=== PATIENT | male | born 1975 | race Caucasian/White ===

== ENCOUNTER 2017-08-08 17:20 | Inpatient (IN) | payer OTHER, MEDICAID ==
[2017-08-08 17:20] VITALS: BMI 55.5
--- NOTE | 2017-08-08 18:36 | C.PDOC ---
History Of Present Illness 42 y/o male, with PMHx of schizophrenia, presents to the ED with mother for psychiatric evaluation. As per mother, patient has been exhibiting disorganized behavior for the past 2 months. Mother states patient has been getting up in the middle of the night, eating and rummaging through things. Patient has sleep apnea and has been on CPAP for the past 15 years. Patient was in respiratory arrest 1 year ago, for which he was treated at [facility] and placed on ventilator. Pathology was unclear at the time. Patient denies suicidal /homicidal ideation at this time. Time Seen by Provider: 08/08/17 17:46 Chief Complaint (Nursing): Medical Clearance History Per: Patient, Family History/Exam Limitations: no limitations Onset/Duration Of Symptoms: Days Current Symptoms Are (Timing): Still Present Additional History Per: Patient, Family Past Medical History Reviewed: Historical Data, Nursing Documentation, Vital Signs Vital Signs: Last Vital Signs Temp 98.9 F 08/08/17 20:37 Pulse 78 08/08/17 20:37 Resp 18 08/08/17 20:37 BP 124/82 08/08/17 20:37 Pulse Ox 98 08/08/17 20:37 - Medical History PMH: Anxiety, Bipolar Disorder, Depression, HTN, Hypercholesterolemia, Post Traumatic Stress Disorder, Schizophrenia, Sleep Apnea (Uses CPap @ night) Denies: Diabetes, Hepatitis, HIV, Chronic Kidney Disease, Seizures, Sexually Transmitted Disease Surgical History: No Surg Hx - [facility] Procedures CONTINUOUS INVASIVE MECHANICAL VENTILATION <96 CONSEC HRS (08/01/15) INJECT/INFUSE NEC (11/21/13) INSERT ENDOTRACHEAL TUBE (08/01/15) Family History: States: Unknown Family Hx - Social History Hx Tobacco Use: No Hx Alcohol Use: No Hx Substance Use: No - Immunization History Hx Tetanus Toxoid Vaccination: Yes Hx Influenza Vaccination: Yes Hx Pneumococcal Vaccination: Yes Review Of Systems Psych: Positive for: Other (+schizophrenia, acting disorganized ). Negative for : Suicidal ideation Physical Exam - Physical Exam Appears: Non-toxic, No Acute Distress, Other (disorganized, not answering questions appropriately, engaging in repetitive hand motions, internally occupied, emotionally distressed, obese ) Skin: Normal Color, Warm, Dry Head: Atraumatic, Normacephalic Eye(s): bilateral: Normal Inspection Oral Mucosa: Moist Neck: Supple Chest: Symmetrical, No Deformity, No Tenderness Cardiovascular: Rhythm Regular, No Murmur Respiratory: Normal Breath Sounds, No Rales, No Rhonchi, No Wheezing Gastrointestinal/Abdominal: Soft, No Tenderness, No Guarding, No Rebound Extremity: Normal ROM Neurological/Psych: Normal Speech, Normal Cognition Gait: Steady ED Course And Treatment - Laboratory Results Result Diagrams: 08/08/17 17:57 08/08/17 18:54 O2 Sat by Pulse Oximetry: 96 (on RA) Pulse Ox Interpretation: Normal Medical Decision Making Medical Decision Making: Impression: 42 y/o male with disorganized behavior Plan: * labs * CXR * EKG * reassess and disposition Progress: labs, EKG, CXR ordered and reviewed. Patient received Ativan PO. Patient needs psychiatry admission for medication management but is unable to go to psych floor due to CPAP for ASO. Case discussed with Dr. Borrego, states OK to admit. Disposition Discussed With : Devon Borrego Counseled Patient/Family Regarding: Studies Performed, Diagnosis - Disposition Disposition: HOSPITALIZED Disposition Time: 18:55 Condition: GUARDED - Clinical Impression Clinical Impression: Schizophrenia, Anxiety, Morbid obesity - Scribe Statement The provider has reviewed the documentation as recorded by the Scribe (Casie Levin) Provider Attestation: All medical record entries made by the Scribe were at my direction and personally dictated by me. I have reviewed the chart and agree that the record accurately reflects my personal performance of the history, physical exam, medical decision making, and the department course for this patient. I have also personally directed, reviewed, and agree with the discharge instructions and disposition. Decision To Admit - Pt Status Changed To: Hospital Disposition Of: Inpatient - Admit Certification Admit to Inpatient:: After my assessment, the patient will require hospitalization for at least two midnights. This is because of the severity of symptoms shown, intensity of services needed, and/or the medical risk in this patient being treated as an outpatient. - InPatient: Physician Admission Certification: I certify that this patient requires 2 or more midnights of care for the following reason:: schizophrenia, - . Bed Request Type: Regular Patient Diagnosis: Schizophrenia, Anxiety, Morbid obesity
[2017-08-08 18:55] LABS: BASO # 0.1 K/uL (0.0-0.2); BASO % 0.6 % (0.0-2.0); EOS # 0.1 K/uL (0.0-0.7); EOS % 1.1 % (0.0-4.0); LYMPH # 1.6 K/uL (1.0-4.3); LYMPH % 17.7 % (20.0-40.0); MEAN CORPUSCULAR HEMOGLOBIN 25.2 pg (27.0-31.0); MEAN PLATELET VOLUME 7.1 fL (7.2-11.7); MONO % 11.3 % (0.0-10.0); RED CELL DISTRIBUTION WIDTH 13.8 % (11.5-14.5)
[2017-08-08 19:20] LABS: CHLORIDE 90 mmol/L (98-107)
[2017-08-08 19:21] LABS: POTASSIUM 3.6 mmol/L (3.6-5.2); SODIUM 128 mmol/L (132-148)
[2017-08-08 19:24] LABS: ALB/GLOB RATIO 1.5 (1.0-2.1); ALKALINE PHOSPHATASE 54 U/L (38-126); ALT/SGPT 28 U/L (21-72); AST/SGOT 21 U/L (17-59); BILIRUBIN,TOTAL 0.5 mg/dL (0.2-1.3); BLOOD UREA NITROGEN 14 mg/dL (9-20); CALCIUM 8.9 mg/dl (8.6-10.4); CARBON DIOXIDE 27 mmol/L (22-30); GFR AFRICAN-AMERICAN > 60; GLUCOSE,RANDOM 88 mg/dL (75-110); TOTAL PROTEIN 6.5 g/dL (6.3-8.3)
[2017-08-08 19:25] LABS: ALCOHOL SERUM < 10 mg/dl (0-10)
--- NOTE | 2017-08-08 20:00 | CP.PCM.HP ---
History of Present Illness - History of Present Illness History of Present Illness: 42 y/o male, with PMHx of schizophrenia, presents to the ED with mother for psychiatric evaluation. As per mother, patient has been exhibiting disorganized behavior for the past 2 months. Mother states patient has been getting up in the middle of the night, eating and rummaging through things. Patient has sleep apnea and has been on CPAP for the past 15 years. Patient was in respiratory arrest 1 year ago, for which he was treated at [facility] and placed on ventilator. Pathology was unclear at the time. Patient denies suicidal /homicidal ideation at this time. Pt. was also intubated in 2014 Present on Admission - Present on Admission Any Indicators Present on Admission: No Review of Systems - Review of Systems All systems: reviewed and no additional remarkable complaints except (restless ness) Past Patient History - Infectious Disease Hx of Infectious Diseases: None - Past Medical History & Family History Past Medical History?: Yes - Past Social History Smoking Status: Never Smoked - CARDIAC Hx Hypercholesterolemia: Yes Hx Hypertension: Yes - PULMONARY Hx Sleep Apnea: Yes (Uses CPap @ night) - NEUROLOGICAL Hx Seizures: No - HEENT Hx HEENT Problems: No - RENAL Hx Chronic Kidney Disease: No - ENDOCRINE/METABOLIC Hx Diabetes Mellitus Type 2: Yes (newly diagnosed) - HEMATOLOGICAL/ONCOLOGICAL Hx Human Immunodeficiency Virus (HIV): No - INTEGUMENTARY Hx Dermatological Problems: No - MUSCULOSKELETAL/RHEUMATOLOGICAL Hx Musculoskeletal Disorders: No Hx Falls: No - GASTROINTESTINAL Hx Gastrointestinal Disorders: No - GENITOURINARY/GYNECOLOGICAL Hx Sexually Transmitted Disorders: No - PSYCHIATRIC Hx Anxiety: Yes Hx Bipolar Disorder: Yes Hx Depression: Yes Hx Post Traumatic Stress Disorder: Yes Hx Schizophrenia: Yes Hx Substance Use: No - SURGICAL HISTORY Hx Surgeries: No - ANESTHESIA Hx Anesthesia: No Hx Anesthesia Reactions: No Hx Malignant Hyperthermia: No Meds Allergies/Adverse Reactions: Allergies Allergy/AdvReac Type Severity Reaction Status Date / Time No Known Allergies Allergy Verified 08/08/17 17:34 Physical Exam - Eye Exam Eye Exam: EOMI - ENT Exam ENT Exam: Mucous Membranes Dry - Neck Exam Neck exam: Positive for: Full Rom. Negative for: Lymphadenopathy - Cardiovascular Exam Cardiovascular Exam: +S1, +S2, +S4 - GI/Abdominal Exam GI & Abdominal Exam: Soft. absent: Tenderness - Extremities Exam Extremities exam: Positive for: full ROM, normal capillary refill, pedal pulses present. Negative for: calf tenderness - Back Exam Back exam: FULL ROM. absent: CVA tenderness (L), CVA tenderness (R) - Neurological Exam Neurological exam: Alert, CN II-XII Intact, Oriented x3, Reflexes Normal Results - Vital Signs Recent Vital Signs: Last Vital Signs Temp 98.5 F 08/08/17 17:32 Pulse 87 08/08/17 17:32 Resp 20 08/08/17 17:32 BP 139/79 08/08/17 17:32 Pulse Ox 96 08/08/17 19:16 - Labs Result Diagrams: 08/08/17 17:57 08/08/17 18:54 Assessment & Plan (1) Schizophrenia Status: Acute Comment: PSYCH EVAL, ADJUSTMENT OF MEDS (2) Hypercapnia Status: Acute (3) Obstructive sleep apnea Status: Acute Comment: WILL CONSULT RESP. AND ODER CPAP SETTINGS
[2017-08-08 20:22] LABS: URINE BACTERIA RARE (<OCC); URINE BILIRUBIN NEGATIVE (NEGATIVE); URINE BLOOD NEGATIVE (NEGATIVE); URINE COLOR Straw (YELLOW); URINE GLUCOSE (UA) NORMAL (Normal); URINE KETONE NEGATIVE (NEGATIVE); URINE LEUKOCYTE ESTERASE NEG Leu/uL (Negative); URINE PROTEIN NEGATIVE (NEGATIVE); URINE UROBILINOGEN NORMAL mg/dL (0.2-1.0); WBC URINE < 1 /hpf (0-5)
[2017-08-09] MEDS ORDERED: Pneumococcal 23-Valent Vaccine IM ONE (00:30)
--- NOTE | 2017-08-09 08:13 | RAD ---
PROCEDURE: CHEST RADIOGRAPH, 1 VIEW HISTORY: Detox/Psy COMPARISON: Portable chest 08/04/2015. FINDINGS: LUNGS: History volume is limited. Crowding of the bronchovascular markings is favored over potential right infrahilar infiltrate with no left infiltrate identified. PLEURA: No pneumothorax or pleural fluid seen. CARDIOVASCULAR: Normal. OSSEOUS STRUCTURES: No significant abnormalities. VISUALIZED UPPER ABDOMEN: Normal. OTHER FINDINGS: None. IMPRESSION: Crowding of the bronchovascular markings is favored over infiltrate or atelectasis at the right infrahilar space given diminished inspiratory effort. Clinically correlate further. Remainder of the examination appears unremarkable.
[2017-08-09] MEDS: Vitamin B Complex/Vitamin C Tab PO SCH (09:53)
[2017-08-09 12:08] LABS: CHLORIDE 95 mmol/L (98-107); POTASSIUM 4.1 mmol/L (3.6-5.2); SODIUM 133 mmol/L (132-148)
[2017-08-09 12:10] LABS: GFR AFRICAN-AMERICAN > 60
[2017-08-09 12:11] LABS: BLOOD UREA NITROGEN 17 mg/dL (9-20); CALCIUM 8.9 mg/dl (8.6-10.4); CARBON DIOXIDE 29 mmol/L (22-30); GLUCOSE,RANDOM 89 mg/dL (75-110)
--- NOTE | 2017-08-09 14:00 | CP.PCM.PN ---
Subjective - Date & Time of Evaluation Date of Evaluation: 08/09/17 Time of Evaluation: 13:59 - Subjective Subjective: RESTLESS TAKES OFF CPAP WAS D/C FROM ON 08/08 AFTER RESP FAILURE PSYCH FRANK ALSO HAS H/O DM Objective - Vital Signs/Intake and Output Vital Signs (last 24 hours): Temp Pulse Resp BP Pulse Ox 98.5 F 70 20 117/69 96 08/09/17 08:00 08/09/17 08:00 08/09/17 08:00 08/09/17 08:00 08/09/17 08:00 Intake and Output: 08/09/17 08/09/17 11:59 23:59 Intake Total 800 Balance 800 - Medications Medications: Current Medications Benztropine Mesylate (Cogentin) 2 mg PO Q6 PRN PRN Reason: Extra Pyramidal Symptoms Diphenhydramine HCl (Benadryl) 50 mg PO Q6 PRN PRN Reason: Extra Pyramidal Symptoms Haloperidol (Haldol) 5 mg PO Q8 PRN PRN Reason: Moderate Agitation Haloperidol Lactate (Haldol) 5 mg IM Q8 PRN PRN Reason: Moderate Agitation Last Admin: 08/09/17 02:17 Dose: 5 mg Hydrochlorothiazide (Hydrodiuril) 25 mg PO DAILY [facility] Last Admin: 08/09/17 09:53 Dose: 25 mg Hydroxyzine HCl (Atarax) 25 mg PO Q6 PRN PRN Reason: Agitation Insulin Human Regular (Novolin R) 2 unit SC [facility] PRN Reason: Protocol Lisinopril (Zestril) 20 mg PO DAILY [facility] Last Admin: 08/09/17 09:53 Dose: 20 mg Metformin HCl (Glucophage) 500 mg PO BID [facility] Last Admin: 08/09/17 09:52 Dose: 500 mg Pneumococcal Polyvalent Vaccine (Pneumovax 23 Vaccine) 0.5 ml IM .ONCE ONE Stop: 08/11/17 10:01 Rosuvastatin Calcium (Crestor) 10 mg PO [facility] Last Admin: 08/08/17 22:47 Dose: 10 mg Sertraline HCl (Zoloft) 100 mg PO DAILY [facility] Last Admin: 08/09/17 09:54 Dose: 100 mg Trazodone HCl (Desyrel) 50 mg PO [facility] Last Admin: 08/08/17 23:20 Dose: 50 mg Vitamin B Complex/Vitamin C (Berocca) 1 tab PO DAILY [facility] Last Admin: 08/09/17 09:53 Dose: 1 tab - Labs Labs: 08/09/17 11:41 Assessment and Plan (1) Schizophrenia Status: Acute (2) Hypercapnia Status: Acute (3) Obstructive sleep apnea Status: Acute
--- NOTE | 2017-08-09 15:23 | PCM.PSYCH ---
Initial Psychiatric Evaluation - Initial Psychiatric Evaluation Type of Admission: Voluntary Legal Status: Capacity Chief Complaint (in patient's own words): Psych consult called for hx of schizophrenia, recent behavior change, possible need for medication adjustment Pt c/o anxiety History of Present Illness and Precipitating Events: Patient is a 42 year old male, single, unemployed, who lives with his mother. Patient is mostly Chadian-speaking and speech is currently disorganized. History obtained via fire watcher from patient and patient's mother. Per patient's mom, he has a history of schizophrenia, depression, and panic attacks. She states that he has recently become hyperactive, anxious, agitated, and started sweating and scratching his face. She brought him to the ED to be evaluated because she did not feel that his psychiatrist would be able to adequately help him. He currently takes Zoloft 100mg once a day and Risperdal 1mg twice a day, in addition to medications for his medical conditions. Patient's mom denies a history of developmental delay and states that he was a normal child until he developed schizophrenia. He completed school until 10th grade. However, the pt seems slightly intellectually disabled. At present, patient states that he is hungry and is eating a sandwich. He denies auditory or visual hallucinations, suicidal or homicidal ideation, but he is very disorganized and cannot take care of self or stay outside. He repeats some words over and over again, and at time says nonsensical words. History is limited due to patient's current mental state. Medical history: Obstructive sleep apnea (on CPAP at night) DM hypercholesterolemia HTN Medications: Zoloft 100mg once a day Risperdal 1mg twice a day other medicines noted below Allergies: denies Social history: Lives with mother single unemployed ETOH: denies Drugs: denies Tobacco: denies Not on probation/parole Current Medications: Active Medications Generic Name Dose Route Start Last Admin Trade Name Freq PRN Reason Stop Dose Admin Benztropine Mesylate 2 mg 08/08/17 22:38 Cogentin PO Q6 PRN Extra Pyramidal Symptoms Clonazepam 1 mg 08/09/17 18:00 Klonopin PO BID [facility]ATY Diphenhydramine HCl 50 mg 08/08/17 22:38 Benadryl PO Q6 PRN Extra Pyramidal Symptoms Haloperidol 5 mg 08/08/17 22:38 Haldol PO Q8 PRN Moderate Agitation Haloperidol Lactate 5 mg 08/08/17 22:38 08/09/17 02:17 Haldol IM 5 mg Q8 PRN Administration Moderate Agitation Hydrochlorothiazide 25 mg 08/09/17 10:00 08/09/17 09:53 Hydrodiuril PO 25 mg DAILY [facility]AT[facility] Administration Hydroxyzine HCl 25 mg 08/08/17 22:40 Atarax PO Q6 PRN Agitation Insulin Human Regular 0 unit 08/09/17 16:30 Novolin R SC [facility] Protocol Lisinopril 20 mg 08/09/17 10:00 08/09/17 09:53 Zestril PO 20 mg DAILY TATY Administration Metformin HCl 500 mg 08/09/17 10:00 08/09/17 09:52 Glucophage PO 500 mg BID [facility]ATY Administration Pneumococcal Polyvalent Vaccine 0.5 ml 08/11/17 10:00 Pneumovax 23 Vaccine IM 08/11/17 10:01 .ONCE ONE Propranolol HCl 10 mg 08/09/17 18:00 Inderal PO TID TATY Risperidone 1 mg 08/09/17 18:00 Risperdal Tab PO BID TATY Rosuvastatin Calcium 10 mg 08/08/17 22:00 08/08/17 22:47 Crestor PO 10 mg HS TATY Administration Sertraline HCl 100 mg 08/09/17 10:00 08/09/17 09:54 Zoloft PO 100 mg DAILY [facility] Administration Trazodone HCl 100 mg 08/09/17 22:00 Desyrel PO HS TATY Vitamin B Complex/Vitamin C 1 tab 08/09/17 10:00 08/09/17 09:53 Berocca PO 1 tab DAILY [facility]AT[facility] Administration Past Psychiatric History - Past Psychiatric History Previous Treatment History: Inpatient Pertinent Medical Hx (Current Medical&Sleep Prob, Allergies): Allergies Allergy/AdvReac Type Severity Reaction Status Date / Time No Known Allergies Allergy Verified 08/08/17 17:34 Sertraline [Zoloft] 100 mg PO DAILY 08/01/15 Atorvastatin 20 mg PO DAILY 02/13/16 MetFORMIN 500 mg PO BID 02/13/16 Multivit,Iron,Min 5/Folic Acid [Strovite Forte Caplet] 1 tab PO DAILY 02/13/16 Lasix 40 mg PO DAILY 08/08/17 Lisinopril/Hydrochlorothiazide [Lisinopril-Hctz 20-25 mg Tab] 1 tab PO DAILY Risperidone [Risperdal] 1 tab BID 08/09/17 Review of Systems - Neurological Neurological: UNREMARKABLE - Psychiatric Psychiatric: Anxiety, Behavioral Changes, Depression, Irritability, Panic Attacks, Paranoia. absent: Auditory Hallucinations, Homicidal Ideation, Suicidal Ideation Mental Status Examination - Personal Presentation Personal Presentation: Looks stated age, Obese - Affect Affect: Constricted - Motor Activity Motor Activity: Psychomotor Agitation - Reliability in Providing Information Reliability in Providing Information: Poor, due to alteration in thoughts, Poor , due to altered mood, Poor, due to cognitve impairment - Speech Speech: Disorganized, Incoherent - Mood Mood: Anxious - Formal Thought Process Formal Thought Process: Paranoia, Loosening of associations, Flight of ideas, Echolalia, Word Salad - Cognitive Functions Orientation: Person Sensorium: Alert Attention/Concentration: Easily distracted Estimate of Intelligence: Below average Judgement: Imparied, as evidence by: Lack of insight into illness Memory: Recent impaired, as evidence by: Inability to recall events of the day, Remote impaired as evidenced by: Inability to recall sig life events - Risk Risk: Diminished functioning - Strength & Assets Inventory Strength & Assets Inventory: Family support - Limitations Limitations: Other DSM 5 DX - DSM 5 DSM 5 Diagnosis: Schizophrenia, acute exacerbation r/o intellectual disability Panic disorder - Recommended/Plan of Treatment Treatment Recommendations and Plan of Treatment: Continue Zoloft 100mg PO daily but will decrease the dose due to risk of switch and interaction with zoloft, akathisia. Continue Risperdal 1mg PO BID (plan to increase tomorrow) Initiate Cogentin 2mg PO Q6 PRN EPS Initiate Inderal 10mg PO TID, Klonopin 1mg PO BID for likely akathisia and obvious anxiety Initiate Haldol PRN agitation Initiate Atarax PRN agitation Continue medications Support and psychoeducation daily Attend groups and activities daily After care planning by MARILYN 34 minutes Projected ELOS: 6-7 days Prognosis: good, only with treatment Discharge Plan and Discharge Criteria: no symptoms of severe depression or severe psyhotic features
--- NOTE | 2017-08-09 16:25 | PCM.BM ---
<Gloria Kinney - Last Filed: 08/09/17 16:22> Treatment Plan Problems - Problems identified on initial assessmt Depression Date Initiated: 08/09/17 Time Initiated: 15:00 Assessment reference: NA Status: Active Altered thought process Date Initiated: 08/09/17 Time Initiated: 15:00 Assessment reference: NA Status: Active Treatment assets and liabiliti Patient Assests: ADL independent, good support system, negotiates basic needs Patient Liabilities: live alone (Lives with mother), medical problems ( Respiratory problem on Cpap) - Milieu Protocol Maintain good personal hygiene: daily Encourage regular showers, daily Remind patient to perform daily oral care, other Assist patient to perform ADL's (Self) Conduct patient checks and document Observation sheet: Q15 minutes (Safety) Maintain personal safety: every shift Educate patient to report safety concerns to staff, every shift Monitor environment for contraband/sharps Medication safety: Monitor for expected outcome, potential side effects: every shift, Assess barriers to learning: every shift, Assess readiness for medication education: every shift Milieu Narrative: Continue Zoloft 100mg PO daily Continue Risperdal 1mg PO BID (plan to increase tomorrow) Initiate Cogentin 2mg PO Q6 PRN EPS Initiate Inderal 10mg PO TID, Klonopin 1mg PO BID for akathisia Initiate Haldol PRN agitation Initiate Atarax PRN agitation Continue medications Support and psychoeducation daily Attend groups and activities daily After care planning by SW 34 minutes Discharge/Continuing Care - Treatment Team Participation Patient/Family/SO Statement: Continue Zoloft 100mg PO daily Continue Risperdal 1mg PO BID (plan to increase tomorrow) Initiate Cogentin 2mg PO Q6 PRN EPS Initiate Inderal 10mg PO TID, Klonopin 1mg PO BID for akathisia Initiate Haldol PRN agitation Initiate Atarax PRN agitation Continue medications Support and psychoeducation daily Attend groups and activities daily After care planning by SW 34 minutes <Kelsi Pierre - Last Filed: 08/10/17 10:57> - Diagnosis (1) Schizophrenia Status: Acute Interventions: 08/10/17 10:58 * Assess/adjust medications daily and /or as needed * Discuss risks, benefits, sided effects and alternatives of medications * See patient on an individual basis 7x/week to assess level of delusional thoughts/ideation * (2) Anxiety Status: Acute Interventions: 08/10/17 10:58 * Assess/adjust medications daily and /or as needed * See patient on an individual basis 7x/week to assess symptoms of anxiety * Educate patient regarding benefits, side effects and risks of prescribed medications * <Jennifer Ram - Last Filed: 08/12/17 11:03> Family Contact Family involvement: Family/SO is involved Family contact: Patient declines to allow family contact at present - Goals for Treatment Patient goals for treatment: "I want to go home." Discharge/Continuing Care - Education Needs Education Needs: Patient Medication, Patient Coping Skills - Discharge Discharge Criteria: Free of Suicidal thoughts Discharge to:: Home, With Family - Treatment Team Participation Discussed with Family/SO: Yes Was Patient/Family/SO present at Treatment Team Meeting: Yes
[2017-08-09] MEDS: (Novolin R) Insulin Human Regular 100 units/ml vial SC SCH ×2 (16:51→21:56)
[2017-08-10] MEDS: (Novolin R) Insulin Human Regular 100 units/ml vial SC SCH ×4 (07:44→22:06)
[2017-08-10] MEDS: Vitamin B Complex/Vitamin C Tab PO SCH (09:19)
[2017-08-10 09:26] LABS: BASO % 0.6 % (0.0-2.0); EOS # 0.1 K/uL (0.0-0.7); EOS % 2.1 % (0.0-4.0); HEMATOCRIT 37.9 % (35.0-51.0); LYMPH % 16.2 % (20.0-40.0); MEAN CELL VOLUME 75.4 fL (80.0-94.0); MEAN CORPUSCULAR HEMOGLOBIN 25.6 pg (27.0-31.0); MEAN PLATELET VOLUME 7.5 fL (7.2-11.7); MONO # 0.6 K/uL (0.0-0.8); MONO % 8.7 % (0.0-10.0); WHITE BLOOD COUNT 6.4 K/uL (4.8-10.8)
[2017-08-10 09:40] LABS: CHLORIDE 96 mmol/L (98-107); POTASSIUM 4.5 mmol/L (3.6-5.2); SODIUM 133 mmol/L (132-148)
[2017-08-10 09:42] LABS: AST/SGOT 18 U/L (17-59); BILIRUBIN,TOTAL 0.6 mg/dL (0.2-1.3); CARBON DIOXIDE 27 mmol/L (22-30); GFR AFRICAN-AMERICAN > 60
[2017-08-10 09:43] LABS: ALB/GLOB RATIO 1.6 (1.0-2.1); ALKALINE PHOSPHATASE 50 U/L (38-126); ALT/SGPT 32 U/L (21-72); BLOOD UREA NITROGEN 14 mg/dL (9-20); CALCIUM 8.3 mg/dl (8.6-10.4); GLUCOSE,RANDOM 133 mg/dL (75-110); TOTAL PROTEIN 6.4 g/dL (6.3-8.3)
--- NOTE | 2017-08-10 11:12 | PCM.PYCHPN ---
Psychiatric Progress Note - Psychiatric Progress Note Patient seen today, length of contact: 15 min Patient Chief Complaint: thais Problems Identified/Issues Discussed: Patient seen and evaluated, chart reviewed and discussed with the nurse. Patient remained disorganized and internally preoccupied. Patient still appears paranoid and delusional. Patient remained depressed, isolated, confined and withdrawn. He is taking medication and denies any side effects. Supportive therapy and psychoeducation were given. Medication Change: No Medical Record Reviewed: Yes Mental Status Examination - Cognitive Function Orientation: Person Memory: Impaired Attention: Poor Concentration: Poor Association: Loose Fund of Knowledge: Poor - Mood Mood: Anxious - Affect Affect: Constricted - Speech Speech: Soft - Formal Thought Process Formal Thought Process: Delusions, Paranoia, Loosening of associations, Flight of ideas, Echolalia, Word Salad - Suicidal Ideation Suicidal Ideation: No - Homicidal Ideation Homicidal Ideation: No Goal/Treatment Plan - Goal/Treatment Plan Need for Continued Stay: Discharge may exacerbated symptoms, Severe functional impairment Progress Toward Problem(s) and Goals/Treatment Plan: Schizophrenia, acute exacerbation r/o intellectual disability Panic disorder Continue Zoloft 100mg PO daily but will decrease the dose due to risk of switch and interaction with zoloft, akathisia. Continue Risperdal 1mg PO BID (plan to increase tomorrow) Initiate Cogentin 2mg PO Q6 PRN EPS Initiate Inderal 10mg PO TID, Klonopin 1mg PO BID for likely akathisia and obvious anxiety Initiate Haldol PRN agitation Initiate Atarax PRN agitation Continue medications Support and psychoeducation daily Attend groups and activities daily After care planning by MARILYN - Smoking Cessation Smoking Cessation Initiated: No
--- NOTE | 2017-08-10 14:04 | CP.PCM.PN ---
Subjective - Date & Time of Evaluation Date of Evaluation: 08/10/17 Time of Evaluation: 14:03 - Subjective Subjective: PT. IN PSYCH UNIT UNDER TREATMENT CURRENTLY NOT ON BIPAP D/W NURSING TO INFORM IF PT IS SYMPTOMATIC , WILL TRANSFER BACK TO MEDICAL FLOOR Objective - Vital Signs/Intake and Output Vital Signs (last 24 hours): Temp Pulse Resp BP Pulse Ox 98.6 F 71 20 114/77 96 08/10/17 06:54 08/10/17 06:54 08/10/17 06:54 08/10/17 06:54 08/10/17 06:54 - Medications Medications: Current Medications Benztropine Mesylate (Cogentin) 2 mg PO Q6 PRN PRN Reason: Extra Pyramidal Symptoms Last Admin: 08/10/17 09:19 Dose: 2 mg Clonazepam (Klonopin) 1 mg PO BID [facility] Last Admin: 08/10/17 09:19 Dose: 1 mg Diphenhydramine HCl (Benadryl) 50 mg PO Q6 PRN PRN Reason: Extra Pyramidal Symptoms Haloperidol (Haldol) 5 mg PO Q8 PRN PRN Reason: Moderate Agitation Last Admin: 08/10/17 09:19 Dose: 5 mg Haloperidol Lactate (Haldol) 5 mg IM Q8 PRN PRN Reason: Moderate Agitation Last Admin: 08/09/17 02:17 Dose: 5 mg Hydrochlorothiazide (Hydrodiuril) 25 mg PO DAILY [facility] Last Admin: 08/10/17 09:19 Dose: 25 mg Hydroxyzine HCl (Atarax) 25 mg PO Q6 PRN PRN Reason: Agitation Insulin Human Regular (Novolin R) 0 unit SC [facility] PRN Reason: Protocol Last Admin: 08/10/17 11:52 Dose: Not Given Lisinopril (Zestril) 20 mg PO DAILY [facility] Last Admin: 08/10/17 09:19 Dose: 20 mg Metformin HCl (Glucophage) 500 mg PO BID [facility] Last Admin: 08/10/17 09:19 Dose: 500 mg Pneumococcal Polyvalent Vaccine (Pneumovax 23 Vaccine) 0.5 ml IM .ONCE ONE Stop: 08/11/17 10:01 Propranolol HCl (Inderal) 10 mg PO TID [facility] Last Admin: 08/10/17 13:38 Dose: Not Given Risperidone (Risperdal Tab) 2 mg PO BID [facility] Last Admin: 08/10/17 11:50 Dose: Not Given Rosuvastatin Calcium (Crestor) 10 mg PO HS [facility] Last Admin: 08/09/17 21:51 Dose: 10 mg Sertraline HCl (Zoloft) 50 mg PO DAILY [facility] Trazodone HCl (Desyrel) 100 mg PO HS [facility] Last Admin: 08/09/17 21:51 Dose: 100 mg Vitamin B Complex/Vitamin C (Berocca) 1 tab PO DAILY [facility] Last Admin: 08/10/17 09:19 Dose: 1 tab - Labs Labs: 08/10/17 09:21 08/10/17 09:21 Assessment and Plan (1) Schizophrenia Status: Acute (2) Hypercapnia Status: Acute (3) Obstructive sleep apnea Status: Acute
[2017-08-11] MEDS: (Novolin R) Insulin Human Regular 100 units/ml vial SC SCH ×4 (08:23→21:42)
[2017-08-11] MEDS: Vitamin B Complex/Vitamin C Tab PO SCH (09:34)
[2017-08-11] MEDS ORDERED: Pneumococcal 23-Valent Vaccine IM ONE (10:00)
--- NOTE | 2017-08-11 10:19 | CARD ---
APPROVED REPORT EKG Measurement Heart [id number] [id number] <Conclusion> Normal sinus rhythm Normal ECG
--- NOTE | 2017-08-11 13:46 | PCM.PYCHPN ---
Psychiatric Progress Note - Psychiatric Progress Note Patient seen today, length of contact: 15 min Patient Chief Complaint: I am thais Problems Identified/Issues Discussed: Patient seen and evaluated, chart reviewed and discussed with the nurse. As pe the staff, Patient remained disorganized and internally preoccupied. Patient remained isolated, confined and withdrawn. Patient still appears paranoid and delusional. He is taking medication and denies any side effects. He needs more time for stabilization. Supportive therapy and psychoeducation were given. Medication Change: No Medical Record Reviewed: Yes Mental Status Examination - Cognitive Function Orientation: Person Memory: Impaired Attention: Poor Concentration: Poor Association: Loose Fund of Knowledge: Poor - Mood Mood: Depressed, Anxious - Affect Affect: Constricted - Speech Speech: Soft - Formal Thought Process Formal Thought Process: Delusions, Paranoia, Loosening of associations, Flight of ideas, Echolalia, Word Salad - Suicidal Ideation Suicidal Ideation: No - Homicidal Ideation Homicidal Ideation: No Goal/Treatment Plan - Goal/Treatment Plan Need for Continued Stay: Discharge may exacerbated symptoms, Severe functional impairment Progress Toward Problem(s) and Goals/Treatment Plan: Schizophrenia, acute exacerbation r/o intellectual disability Panic disorder Continue Zoloft 100mg PO daily but will decrease the dose due to risk of switch and interaction with zoloft, akathisia. Continue Risperdal 1mg PO BID (plan to increase tomorrow) Initiate Cogentin 2mg PO Q6 PRN EPS Initiate Inderal 10mg PO TID, Klonopin 1mg PO BID for likely akathisia and obvious anxiety Initiate Haldol PRN agitation Initiate Atarax PRN agitation Continue medications Support and psychoeducation daily Attend groups and activities daily After care planning by MARILYN - Smoking Cessation Smoking Cessation Initiated: No
[2017-08-12] MEDS: (Novolin R) Insulin Human Regular 100 units/ml vial SC SCH ×4 (08:23→22:48)
[2017-08-12] MEDS: Vitamin B Complex/Vitamin C Tab PO SCH (10:41)
--- NOTE | 2017-08-12 14:40 | PCM.PYCHPN ---
Psychiatric Progress Note - Psychiatric Progress Note Patient seen today, length of contact: 15 minutes Patient Chief Complaint: "I'm okay" Problems Identified/Issues Discussed: The patient was seen, chart reviewed, case discussed with staff. The patient is compliant with medications and reports no side effects. Patient responds to questions in German and seems to understand what is being said. He states that his weekend was "good" and reports no problems. He denies hearing voices right now. Patient states "I miss my mother" and says that she came to visit him. Symptoms are improving but patient needs more time to stabilize. After care discussed--patient understands that he will be discharged in two days. Support and psychoeducation given. Medication Change: No Medical Record Reviewed: Yes Mental Status Examination - Cognitive Function Orientation: Person, Situation Memory: Impaired Attention: Poor Concentration: Poor Association: Loose Fund of Knowledge: Poor - Mood Mood: Anxious - Affect Affect: Constricted - Speech Speech: Pressured - Formal Thought Process Formal Thought Process: Paranoia, Loosening of associations, Flight of ideas, Echolalia, Word Salad - Suicidal Ideation Suicidal Ideation: No - Homicidal Ideation Homicidal Ideation: No Goal/Treatment Plan - Goal/Treatment Plan Need for Continued Stay: Severe depression anxiety, Severe functional impairment Progress Toward Problem(s) and Goals/Treatment Plan: Continue Zoloft 100mg PO daily Risperdal 2mg PO BID Cogentin 2mg PO Q6 PRN EPS Inderal 10mg PO TID, Klonopin 1mg PO BID for likely akathisia and obvious anxiety Haldol PRN agitation Atarax PRN agitation Continue medications Support and psychoeducation daily Attend groups and activities daily After care planning by MARILYN
[2017-08-13] MEDS: (Novolin R) Insulin Human Regular 100 units/ml vial SC SCH ×4 (09:45→21:40)
[2017-08-13] MEDS: Vitamin B Complex/Vitamin C Tab PO SCH (09:46)
--- NOTE | 2017-08-13 14:23 | PCM.PYCHPN ---
Psychiatric Progress Note - Psychiatric Progress Note Patient seen today, length of contact: 15 minutes Patient Chief Complaint: "I'm walking" Problems Identified/Issues Discussed: The patient was seen, chart reviewed, case discussed with staff. The patient is compliant with medications and reports no side effects. Patient speaks a mix of Kosovan and Turkish. He apparently understands what is said to him in both Kosovan and Turkish. When asked why he didn't sleep last night, patient makes nonsensical statements like "I can't stay in the room because I'm walking" or "I have to go to the bathroom" and continues to repeat himself. He is noted to be walking the halls repeatedly. Patient needs more time to stabilize. After care discussed--patient informed that he will be leaving on instead of Saturday, and he expresses understanding. Support and psychoeducation given. Medication Change: Yes (increase Trazadone to 200mg PO) Medical Record Reviewed: Yes Mental Status Examination - Cognitive Function Orientation: Person, Situation Memory: Impaired Attention: Poor Concentration: Poor Association: Loose Fund of Knowledge: Poor - Mood Mood: Anxious - Affect Affect: Constricted - Speech Speech: Pressured - Formal Thought Process Formal Thought Process: Paranoia, Loosening of associations, Flight of ideas, Echolalia, Word Salad - Suicidal Ideation Suicidal Ideation: No - Homicidal Ideation Homicidal Ideation: No Goal/Treatment Plan - Goal/Treatment Plan Need for Continued Stay: Severe depression anxiety, Severe functional impairment Progress Toward Problem(s) and Goals/Treatment Plan: Zoloft 50mg PO daily Risperdal 2mg PO BID Cogentin 2mg PO Q6 PRN EPS Inderal 10mg PO TID, Klonopin 1mg PO BID for likely akathisia and obvious anxiety Haldol PRN agitation Atarax PRN agitation Continue medications Support and psychoeducation daily Attend groups and activities daily After care planning by MARILYN
[2017-08-14] MEDS: Vitamin B Complex/Vitamin C Tab PO SCH (09:57)
[2017-08-14] MEDS: (Novolin R) Insulin Human Regular 100 units/ml vial SC SCH ×4 (09:57→22:03)
--- NOTE | 2017-08-14 11:07 | CP.PCM.PN ---
Subjective - Date & Time of Evaluation Date of Evaluation: 08/13/17 Time of Evaluation: 11:06 - Subjective Subjective: NO EPISODES OF SOB OFF CPAP OBSERVE Objective - Vital Signs/Intake and Output Vital Signs (last 24 hours): Temp Pulse Resp BP Pulse Ox 98.1 F 65 19 126/78 96 08/14/17 07:44 08/14/17 07:44 08/14/17 07:44 08/14/17 07:44 08/10/17 06:54 - Medications Medications: Current Medications Benztropine Mesylate (Cogentin) 2 mg PO Q6 PRN PRN Reason: Extra Pyramidal Symptoms Last Admin: 08/11/17 09:31 Dose: 2 mg Clonazepam (Klonopin) 1 mg PO BID [facility] Last Admin: 08/14/17 09:56 Dose: 1 mg Diphenhydramine HCl (Benadryl) 50 mg PO Q6 PRN PRN Reason: Extra Pyramidal Symptoms Last Admin: 08/13/17 22:09 Dose: 50 mg Haloperidol (Haldol) 5 mg PO Q8 PRN PRN Reason: Moderate Agitation Last Admin: 08/11/17 09:32 Dose: 5 mg Haloperidol Lactate (Haldol) 5 mg IM Q8 PRN PRN Reason: Moderate Agitation Last Admin: 08/09/17 02:17 Dose: 5 mg Hydrochlorothiazide (Hydrodiuril) 25 mg PO DAILY [facility] Last Admin: 08/14/17 09:56 Dose: 25 mg Hydroxyzine HCl (Atarax) 25 mg PO Q6 PRN PRN Reason: Agitation Insulin Human Regular (Novolin R) 0 unit SC [facility] PRN Reason: Protocol Last Admin: 08/14/17 09:57 Dose: Not Given Lisinopril (Zestril) 20 mg PO DAILY [facility] Last Admin: 08/14/17 09:56 Dose: 20 mg Lorazepam (Ativan) 1 mg PO Q6 PRN PRN Reason: severe anxiety Last Admin: 08/11/17 16:42 Dose: 1 mg Metformin HCl (Glucophage) 500 mg PO BID [facility] Last Admin: 08/14/17 09:57 Dose: 500 mg Propranolol HCl (Inderal) 10 mg PO TID [facility] Last Admin: 08/14/17 09:57 Dose: 10 mg Risperidone (Risperdal Tab) 2 mg PO BID [facility] Last Admin: 08/14/17 09:57 Dose: 2 mg Rosuvastatin Calcium (Crestor) 10 mg PO HS [facility] Last Admin: 08/13/17 22:09 Dose: 10 mg Sertraline HCl (Zoloft) 50 mg PO DAILY [facility] Last Admin: 08/14/17 10:00 Dose: 50 mg Trazodone HCl (Desyrel) 200 mg PO HS [facility] Last Admin: 08/13/17 22:09 Dose: 200 mg Vitamin B Complex/Vitamin C (Berocca) 1 tab PO DAILY [facility] Last Admin: 08/14/17 09:57 Dose: 1 tab - Labs Labs: 08/10/17 09:21 08/10/17 09:21 Assessment and Plan (1) Schizophrenia Status: Acute (2) Hypercapnia Status: Acute (3) Obstructive sleep apnea Status: Acute
--- NOTE | 2017-08-14 14:50 | PCM.PYCHPN ---
Psychiatric Progress Note - Psychiatric Progress Note Patient seen today, length of contact: 15 minutes Patient Chief Complaint: "I'm okay" Problems Identified/Issues Discussed: The patient was seen, chart reviewed, case discussed with staff. The patient is compliant with medications and reports no side effects. Patient speaks a mix of Czech and Cameroonian. He states that he's okay and slept better last night. He repeatedly states that he needs toothpaste and a toothbrush so he can brush his teeth. Symptoms are improving but patient needs more time to stabilize. After care discussed--patient understands that he will be discharged tomorrow. Support and psychoeducation given. Medication Change: No Medical Record Reviewed: Yes Mental Status Examination - Cognitive Function Orientation: Person, Situation Memory: Impaired Attention: Poor Concentration: Poor Association: Loose Fund of Knowledge: Poor - Mood Mood: Anxious - Affect Affect: Constricted - Speech Speech: Pressured - Formal Thought Process Formal Thought Process: Paranoia, Loosening of associations, Flight of ideas, Echolalia, Word Salad - Suicidal Ideation Suicidal Ideation: No - Homicidal Ideation Homicidal Ideation: No Goal/Treatment Plan - Goal/Treatment Plan Need for Continued Stay: Severe depression anxiety, Severe functional impairment Progress Toward Problem(s) and Goals/Treatment Plan: Zoloft 50mg PO daily Risperdal 2mg PO BID Cogentin 2mg PO Q6 PRN EPS Inderal 10mg PO TID, Klonopin 1mg PO BID for likely akathisia and obvious anxiety Haldol PRN agitation Atarax PRN agitation Continue medications Support and psychoeducation daily Attend groups and activities daily After care planning by MARILYN
[2017-08-15] MEDS: Vitamin B Complex/Vitamin C Tab PO SCH (10:22)
[2017-08-15] MEDS: (Novolin R) Insulin Human Regular 100 units/ml vial SC SCH ×4 (10:23→21:58)
--- NOTE | 2017-08-15 11:17 | PCM.PYCHPN ---
Psychiatric Progress Note - Psychiatric Progress Note Patient seen today, length of contact: 15 minutes Patient Chief Complaint: "I have parasites" Problems Identified/Issues Discussed: The patient was seen, chart reviewed, case discussed with staff. The patient is compliant with medications. Cannot ascertain whether he is experiencing side effects based on current mental state. Patient remains disorganized, walking around the hallways moving his hands, speaking a mix of Polish and Setswana when spoken to. He states that he slept last night but staff reports that he did not sleep. Staff also reports that he clogged the toilet in his room. When questioned about this, patient states that he has "parasites" and also makes irrelevant and nonsensical statements like "I' m young." Patient needs more time to stabilize. After care discussed--plan is for discharge in 4 days (Saturday) instead of today. Support and psychoeducation given. Medication Change: No Medical Record Reviewed: Yes Mental Status Examination - Cognitive Function Orientation: Person, Situation Memory: Impaired Attention: Poor Concentration: Poor Association: Loose Fund of Knowledge: Poor - Mood Mood: Anxious - Affect Affect: Constricted - Speech Speech: Pressured - Formal Thought Process Formal Thought Process: Paranoia, Loosening of associations, Flight of ideas, Echolalia, Word Salad - Suicidal Ideation Suicidal Ideation: No - Homicidal Ideation Homicidal Ideation: No Goal/Treatment Plan - Goal/Treatment Plan Need for Continued Stay: Severe depression anxiety, Severe functional impairment Progress Toward Problem(s) and Goals/Treatment Plan: Zoloft 50mg PO daily Risperdal 2mg PO BID Cogentin 2mg PO Q6 PRN EPS Inderal 10mg PO TID, Klonopin 1mg PO BID for likely akathisia and obvious anxiety Haldol PRN agitation Atarax PRN agitation Continue medications Support and psychoeducation daily Attend groups and activities daily After care planning by MARILYN
[2017-08-16] MEDS: (Novolin R) Insulin Human Regular 100 units/ml vial SC SCH ×4 (07:53→23:01)
[2017-08-16] MEDS: Vitamin B Complex/Vitamin C Tab PO SCH (10:36)
--- NOTE | 2017-08-16 11:40 | PCM.PYCHPN ---
Psychiatric Progress Note - Psychiatric Progress Note Patient seen today, length of contact: 16 min Patient Chief Complaint: "I am OK" Problems Identified/Issues Discussed: The patient was seen, chart reviewed, case discussed with staff. The patient is now on increased dose of Risperdal and has no side effects. Seroquel is also aided for insomnia which he still has but trazodone decreased. He still psychotic, internally preoccupied, talking to himself, not making sense at times. He is seen with a Serbian-speaking medical staff. He still believes he has parasites even though there is no evidence to it. Psychoeducation and support given. Discharge is likely next week. He is compliant with medications Medication Change: Yes (add seroquel HS) Medical Record Reviewed: Yes Mental Status Examination - Cognitive Function Orientation: Person Memory: Impaired Attention: Poor Concentration: Poor Association: Loose Fund of Knowledge: Poor - Mood Mood: Depressed, Anxious - Affect Affect: Constricted - Speech Speech: Soft - Formal Thought Process Formal Thought Process: Delusions, Paranoia, Loosening of associations, Echolalia (rarely) - Suicidal Ideation Suicidal Ideation: No - Homicidal Ideation Homicidal Ideation: No Goal/Treatment Plan - Goal/Treatment Plan Need for Continued Stay: Discharge may exacerbated symptoms, Severe functional impairment Progress Toward Problem(s) and Goals/Treatment Plan: Zoloft 50mg PO daily stopped due to pt getting more restless and manicky Risperdal 2mg PO BID Cogentin 2mg PO Q6 PRN EPS and 1 mg BID Inderal 10mg PO TID, Klonopin 1mg PO BID for likely akathisia and anxiety Haldol PRN agitation Atarax PRN agitation Seroquel 100 mg HS for insomnia Support and psychoeducation daily Attend groups and activities daily After care planning: [facility] [place] [facility] Estimated Date of D/C: 08/19/17
[2017-08-17] MEDS: (Novolin R) Insulin Human Regular 100 units/ml vial SC SCH ×4 (08:29→21:17)
[2017-08-17] MEDS: Vitamin B Complex/Vitamin C Tab PO SCH (09:24)
--- NOTE | 2017-08-17 13:55 | CP.PCM.PN ---
Subjective - Date & Time of Evaluation Date of Evaluation: 08/16/17 Time of Evaluation: 15:00 - Subjective Subjective: NO EPISODES OF SOB OFF CPAP OBSERVE Objective - Vital Signs/Intake and Output Vital Signs (last 24 hours): Temp Pulse Resp BP Pulse Ox 97.8 F 86 19 151/94 H 99 08/17/17 09:25 08/17/17 09:25 08/17/17 09:25 08/17/17 09:25 08/16/17 07:36 - Medications Medications: Current Medications Benztropine Mesylate (Cogentin) 1 mg PO BID [facility] Last Admin: 08/17/17 09:24 Dose: 1 mg Clonazepam (Klonopin) 1 mg PO BID [facility] Last Admin: 08/17/17 09:24 Dose: 1 mg Diphenhydramine HCl (Benadryl) 50 mg PO Q6 PRN PRN Reason: Extra Pyramidal Symptoms Last Admin: 08/13/17 22:09 Dose: 50 mg Haloperidol (Haldol) 5 mg PO Q8 PRN PRN Reason: Moderate Agitation Last Admin: 08/11/17 09:32 Dose: 5 mg Hydrochlorothiazide (Hydrodiuril) 25 mg PO DAILY [facility] Last Admin: 08/17/17 09:24 Dose: 25 mg Hydroxyzine HCl (Atarax) 25 mg PO Q6 PRN PRN Reason: Agitation Hydroxyzine HCl (Atarax) 50 mg PO [facility] Last Admin: 08/16/17 23:02 Dose: 50 mg Insulin Human Regular (Novolin R) 0 unit SC [facility] PRN Reason: Protocol Last Admin: 08/17/17 12:10 Dose: Not Given Lisinopril (Zestril) 20 mg PO DAILY [facility] Last Admin: 08/17/17 09:24 Dose: 20 mg Lorazepam (Ativan) 1 mg PO Q6 PRN PRN Reason: severe anxiety Last Admin: 08/11/17 16:42 Dose: 1 mg Metformin HCl (Glucophage) 500 mg PO BID [facility] Last Admin: 08/17/17 09:24 Dose: 500 mg Propranolol HCl (Inderal) 10 mg PO TID [facility] Last Admin: 08/17/17 13:37 Dose: Not Given Quetiapine Fumarate (Seroquel) 100 mg PO [facility] Last Admin: 08/16/17 23:01 Dose: 100 mg Risperidone (Risperdal Tab) 2 mg PO BID [facility] Last Admin: 08/17/17 09:24 Dose: 2 mg Rosuvastatin Calcium (Crestor) 10 mg PO [facility] Last Admin: 08/16/17 23:02 Dose: 10 mg Trazodone HCl (Desyrel) 100 mg PO [facility] Last Admin: 08/16/17 23:02 Dose: 100 mg Vitamin B Complex/Vitamin C (Berocca) 1 tab PO DAILY [facility] Last Admin: 08/17/17 09:24 Dose: 1 tab - Labs Labs: 08/10/17 09:21 08/10/17 09:21 Assessment and Plan (1) Schizophrenia Status: Acute (2) Hypercapnia Status: Acute (3) Obstructive sleep apnea Status: Acute
--- NOTE | 2017-08-17 18:36 | PCM.PYCHPN ---
Psychiatric Progress Note - Psychiatric Progress Note Patient seen today, length of contact: 15 minutes Patient Chief Complaint: I'm feeling much better Problems Identified/Issues Discussed: Patient seen. Chart reviewed. Case discussed with the staff. Issues related to illness and treatment were discussed with the patient. Patient was evaluated with a Bulgarian-speaking nurse on the unit. Reported compliant with treatment with no adverse affects. Tolerating treatment very well. Feels much better. At the time of evaluation, patient was awake alert oriented 3, had no delusions , no auditory or visual hallucinations, no suicidal ideations or homicidal ideations. Medical Problems: Obstructive sleep apnea (on CPAP at night) DM hypercholesterolemia HTN Diagnostic Results: Reviewed DSM 5 Symptoms Update: Improving with treatment Medication Change: No Medical Record Reviewed: Yes Consults ordered or reviewed: Reviewed Mental Status Examination - Cognitive Function Orientation: Person, Place, Situation, Time Memory: Intact Attention: WNL Concentration: WNL Association: WN Fund of Knowledge: [facility] Decription of patient's judgement and insights: Fair - Mood Mood: Depressed (Less than before) - Affect Affect: Flat - Speech Speech: Soft - Formal Thought Process Formal Thought Process: Other - Suicidal Ideation Suicidal Ideation: No - Homicidal Ideation Homicidal Ideation: No Goal/Treatment Plan - Goal/Treatment Plan Need for Continued Stay: Remain at risks for inpatient hospitalization, Discharge may exacerbated symptoms, Severe functional impairment Progress Toward Problem(s) and Goals/Treatment Plan: Patient education Supportive therapy Continue treatment as before Estimated Date of D/C: 08/19/17 - Smoking Cessation Smoking Cessation Initiated: No
[2017-08-18 06:39] VITALS: RESP 20
[2017-08-18] MEDS: (Novolin R) Insulin Human Regular 100 units/ml vial SC SCH ×4 (08:00→22:21)
[2017-08-18] MEDS: Vitamin B Complex/Vitamin C Tab PO SCH (09:28)
--- NOTE | 2017-08-18 14:56 | PCM.PYCHPN ---
Psychiatric Progress Note - Psychiatric Progress Note Patient seen today, length of contact: 15 minutes Patient Chief Complaint: I'm feeling much better. Can I go home today. Problems Identified/Issues Discussed: Patient seen. Chart reviewed. Case discussed with the staff. Issues related to illness and treatment were discussed with the patient. Patient was evaluated with a Polish-speaking nurse on the unit. Reported compliant with treatment with no adverse affects. Tolerating treatment very well. Feels much better. Asking for discharge from the hospital. At the time of evaluation, patient was awake alert oriented 3, had no delusions , no auditory or visual hallucinations, no suicidal ideations or homicidal ideations. Medical Problems: Obstructive sleep apnea (on CPAP at night) DM hypercholesterolemia HTN Diagnostic Results: Reviewed DSM 5 Symptoms Update: Improving with treatment Medication Change: No Medical Record Reviewed: Yes Consults ordered or reviewed: Reviewed Mental Status Examination - Cognitive Function Orientation: Person, Place, Situation, Time Memory: Intact Attention: WNL Concentration: WNL Association: WNL Fund of Knowledge: WNL Decription of patient's judgement and insights: Average - Mood Mood: Depressed (Less than before) - Affect Affect: Flat - Speech Speech: Soft - Formal Thought Process Formal Thought Process: Loosening of associations, Other - Suicidal Ideation Suicidal Ideation: No - Homicidal Ideation Homicidal Ideation: No Goal/Treatment Plan - Goal/Treatment Plan Need for Continued Stay: Remain at risks for inpatient hospitalization, Discharge may exacerbated symptoms, Severe functional impairment Progress Toward Problem(s) and Goals/Treatment Plan: Patient education Supportive therapy Continue treatment as before Estimated Date of D/C: 08/19/17 - Smoking Cessation Smoking Cessation Initiated: No
[2017-08-19] MEDS: (Novolin R) Insulin Human Regular 100 units/ml vial SC SCH ×2 (07:39→14:49)
[2017-08-19] MEDS: Vitamin B Complex/Vitamin C Tab PO SCH (09:45)
--- NOTE | 2017-08-19 14:46 | PCM.PYCHPN ---
Psychiatric Progress Note - Psychiatric Progress Note Patient seen today, length of contact: 15 minutes Patient Chief Complaint: "Tired" Problems Identified/Issues Discussed: The pt is seen, chart reviewed, case discussed with staff. Pt still disorganized, hearing voices, disoriented Discharge postponed to Wed for now. Will consider med change but he is not in agreement yet. He may benefit from Clozapine Medically stable - not on cpap but no pulm complaints DSM 5 Symptoms Update: Schizophrenia, acute exacerbation r/o intellectual disability Panic disorder Medication Change: No Medical Record Reviewed: Yes Mental Status Examination - Cognitive Function Orientation: Person, Place, Situation, Time Memory: Intact Attention: Poor Concentration: Poor Association: WNL Fund of Knowledge: WNL - Mood Mood: Depressed (Less than before) - Affect Affect: Flat - Speech Speech: Slurred - Formal Thought Process Formal Thought Process: Loosening of associations, Other - Suicidal Ideation Suicidal Ideation: No - Homicidal Ideation Homicidal Ideation: No Goal/Treatment Plan - Goal/Treatment Plan Need for Continued Stay: Remain at risks for inpatient hospitalization, Discharge may exacerbated symptoms, Severe functional impairment Progress Toward Problem(s) and Goals/Treatment Plan: Continue medications Support and psychoeducation daily Attend groups and activities daily After care planning by MARILYN Estimated Date of D/C: 08/19/17 - Smoking Cessation Smoking Cessation Initiated: No
--- NOTE | 2017-08-20 07:40 | PCM.BM ---
<Taniya Ramy - Last Filed: 08/20/17 07:39> Treatment Plan Problems - Problems identified on initial assessmt Depression Date Initiated: 08/09/17 Time Initiated: 15:00 Assessment reference: NA Status: Active Altered thought process Date Initiated: 08/09/17 Time Initiated: 15:00 Assessment reference: NA Status: Active Treatment assets and liabiliti Patient Assests: ADL independent, good support system, negotiates basic needs Patient Liabilities: live alone (Lives with mother), medical problems ( Respiratory problem on Cpap) - Milieu Protocol Maintain good personal hygiene: daily Encourage regular showers, daily Remind patient to perform daily oral care, other Assist patient to perform ADL's (Self) Conduct patient checks and document Observation sheet: Q15 minutes (Safety) Maintain personal safety: every shift Educate patient to report safety concerns to staff, every shift Monitor environment for contraband/sharps Medication safety: Monitor for expected outcome, potential side effects: every shift, Assess barriers to learning: every shift, Assess readiness for medication education: every shift Milieu Narrative: Continue medications Support and psychoeducation daily Attend groups and activities daily After care planning by SW Family Contact Family involvement: Family/SO is involved Family contact: Patient declines to allow family contact at present - Goals for Treatment Patient goals for treatment: "I want to go home." Discharge/Continuing Care - Education Needs Education Needs: Patient Medication, Patient Coping Skills - Discharge Discharge Criteria: Free of Suicidal thoughts Discharge to:: Home, With Family - Treatment Team Participation Patient/Family/SO Statement: Continue medications Support and psychoeducation daily Attend groups and activities daily After care planning by SW Discussed with Family/SO: Yes Was Patient/Family/SO present at Treatment Team Meeting: Yes Treatment Plan Review Patient participation: No (Pt is disorganized and responding to internal stimuli.) Family/SO/Caregiver participation: No - Problem Depression Date Initiated: 08/20/17 Time Initiated: 07:39 Progress toward outcomes: unchanged Altered thought process Date Initiated: 08/20/17 Time Initiated: 07:40 Progress toward outcomes: unchanged - Discharge / Continuing Care Discharge to:: Home, With Family Behavioral Health Services: Partial hospital Health Needs: Medications/Rx (Pt needs further psychiatric stabilization.) <Kely Johansen - Last Filed: 08/20/17 07:51> - Milieu Protocol Maintain good personal hygiene: daily Encourage regular showers, daily Remind patient to perform daily oral care, daily Assist patient to perform ADL's Maintain personal safety: every shift Monitor environment for contraband/sharps Medication safety: Monitor for expected outcome, potential side effects: every shift, Assess barriers to learning: every shift, Assess readiness for medication education: every shift <Kelsi Pierre - Last Filed: 08/20/17 13:02> - Diagnosis (1) Schizophrenia Status: Acute Interventions: 08/20/17 13:02 * Assess/adjust medications daily and /or as needed * See patient on an individual basis 7x/week to assess status of hallucinations * Discuss risks, benefits, side effects and alternatives of medications * (2) Anxiety Status: Acute Interventions: 08/20/17 13:02 * Assess/adjust medications daily and /or as needed * See patient on an individual basis 7x/week to assess symptoms of anxiety * Educate patient regarding benefits, side effects and risks of prescribed medications *
[2017-08-20 07:54] VITALS: O2SAT 97
[2017-08-20] MEDS: Vitamin B Complex/Vitamin C Tab PO SCH (10:21)
--- NOTE | 2017-08-20 12:43 | PCM.PYCHPN ---
Psychiatric Progress Note - Psychiatric Progress Note Patient seen today, length of contact: 15 minutes Patient Chief Complaint: "OK" Problems Identified/Issues Discussed: The pt is seen, chart reviewed, case discussed with staff. Sleeping somewhat better now Internally preoccupied but likely baseline Convention Services Director and SW called his mother and she confirmed he is better and can be dc'ed soon Support given No SES Medication Change: No Medical Record Reviewed: Yes Mental Status Examination - Cognitive Function Orientation: Person, Place, Situation, Time Memory: Intact Attention: Poor Concentration: Poor Association: WNL Fund of Knowledge: WNL - Mood Mood: Depressed (Less than before) - Affect Affect: Flat - Speech Speech: Slurred - Formal Thought Process Formal Thought Process: Loosening of associations, Other - Suicidal Ideation Suicidal Ideation: No - Homicidal Ideation Homicidal Ideation: No Goal/Treatment Plan - Goal/Treatment Plan Need for Continued Stay: Remain at risks for inpatient hospitalization, Discharge may exacerbated symptoms, Severe functional impairment Progress Toward Problem(s) and Goals/Treatment Plan: Continue medications Support and psychoeducation daily Attend groups and activities daily After care planning: [facility] Estimated Date of D/C: 08/21/17
[2017-08-21 07:47] VITALS: BP 117/81; PULSE 62; TEMP 98.5
--- NOTE | 2017-08-21 09:34 | PCM.PYCHDC ---
Mental Status Examination - Mental Status Examination Orientation: Person, Place, Time Memory: Impaired Mood: Anxious Affect: Constricted (odd) Speech: Slurred Attention: Poor Concentration: Poor Association: Loose Fund of Knowledge: Poor Formal Thought Process: Loosening of associations Suicidal Ideation: No Current Homicidal Ideation?: No Discharge Summary - Discharge Note Laboratory Data: Abnormal Lab Results 08/21/17 07:28 POC Glucose (mg/dL) 77 Consultations:: List each consultation separately and include: 1. Reason for request. 2. Findings. 3. Follow-up Summary of Hospital Course include:: 1. Description of specific treatment plan utilized for patients during their course of treatmen. 2. Summarize the time- course for resolution of acute symptoms and/or regressed behaviors. 3. Describe issues identified and worked on during hospitalization. 4. Describe medication utilized. 5. Describe medical problems identified and treated. 6. Reassessment of suicide risk Summary of Hospital Course: Pt is seen, chart reviewed. On admission: Patient is a 42 year old male, single, unemployed, who lives with his mother. Patient is mostly [place]-speaking and speech is currently disorganized. History obtained via barrel lathe operator from patient and patient's mother. Per patient's mom, he has a history of schizophrenia, depression, and panic attacks. She states that he has recently become hyperactive, anxious, agitated, and started sweating and scratching his face. She brought him to the ED to be evaluated because she did not feel that his psychiatrist would be able to adequately help him. He currently takes Zoloft 100mg once a day and Risperdal 1mg twice a day, in addition to medications for his medical conditions. Patient's mom denies a history of developmental delay and states that he was a normal child until he developed schizophrenia. He completed school until 10th grade. However, the pt seems slightly intellectually disabled. At present, patient states that he is hungry and is eating a sandwich. He denies auditory or visual hallucinations, suicidal or homicidal ideation, but he is very disorganized and cannot take care of self or stay outside. He repeats some words over and over again, and at time says nonsensical words. History is limited due to patient's current mental state. Hospital course: The pt was admitted from med/surg unit and started on treatment with psychotherapy, support, psychoeducation and medications. The pt attended groups and activities, as well as milieu therapy. All the risks and benefits of medications are discussed and the patient understood and agreed. The pt improved with the treatments provided. However, his baseline functioning and symptomatology are poor and he did not go beyond that: he is still isolative , sometimes talks/laughs to himself, very poor insight and has likely intell. disability. It took longer for him to improve. After care discussed with the patien and his mo who is almost his guardian, and he went back to [facility] [place] - Final Diagnosis (DSM 5) Condition upon Discharge: IMPROVED DSM 5: Schizophrenia, acute exacerbation r/o intellectual disability Panic disorder Disposition: HOME/ ROUTINE Follow-up Treatment Plan: Continue below medications after discharge.Plus the insulin (mo is made aware) Follow after care plan as discussed at [facility] [place] Return to ER or call 911 if suicidal, homicidal or symptoms relapse. Stay away from stress, alcohol and drugs. See primary doctor regularly Prescriptions/Medication Reconciliation: Benztropine [Cogentin] 1 mg PO BID #60 tab hydroCHLOROthiazide [Hydrodiuril] 25 mg PO DAILY #30 tab Lisinopril [Zestril] 20 mg PO DAILY #30 tab metFORMIN [glucOPHAGE] 500 mg PO BID #60 tab QUEtiapine [Seroquel] 200 mg PO HS #30 tab risperiDONE [RisperDAL Tab] 2 mg PO BID #60 tab Rosuvastatin Calcium [Crestor] 10 mg PO HS #30 tab traZODone [Desyrel] 100 mg PO HS #30 tab - Smoking Cessation Smoking Cessation Medication prescribed: No - Antipsychotic Medications Pt discharged on 2 or more routine antipsychotic medications: Yes - Justification for 2 or more meds Plan to taper monotherapy: List medications: seroquel will be stopped in a month, it was for sleep mostly
[2017-08-21] MEDS: Vitamin B Complex/Vitamin C Tab PO SCH (10:24)
== END 2017-08-21 12:48 | disposition home or self-care (01) | DRG 430 ==
LOC: C.ER 17:20 → C.9E 19:00 → C.3T 20:38 → C.5E 08-09 14:24
PROVIDERS: ADMIT Internal Medicine Cardiovascular Disease; ATTEND Psychiatry & Neurology Psychiatry
PROC: GZHZZZZ Group Psychotherapy (ICD-10-PCS; principal; 2017-08-08)
PROC: GZ56ZZZ Individual Psychotherapy, Supportive (ICD-10-PCS; 2017-08-08)
DX: F20.89 Other schizophrenia (principal); Z68.41 Body mass index [BMI] 40.0-44.9, adult; I10 Essential (primary) hypertension; F79 Unspecified intellectual disabilities; F43.10 Post-traumatic stress disorder, unspecified; F41.0 Panic disorder [episodic paroxysmal anxiety]; F31.9 Bipolar disorder, unspecified; E78.00 Pure hypercholesterolemia, unspecified; G47.33 Obstructive sleep apnea (adult) (pediatric); R06.89 Other abnormalities of breathing; E11.9 Type 2 diabetes mellitus without complications; Z79.4 Long term (current) use of insulin; E66.01 Morbid (severe) obesity due to excess calories

== ENCOUNTER 2018-08-11 07:30 | Day surgery (SDC) | payer OTHER ==
[2018-08-11 08:40] VITALS: TEMP 96.8
[2018-08-11 09:10] VITALS: BMI 43.0
[2018-08-11] MEDS ORDERED: Midazolam 2 MG/2 ML VIAL ONE (09:10)
[2018-08-11] MEDS ORDERED: Propofol 10 mg/ml Inj (20 ML) ONE ×2 (09:10→09:11)
[2018-08-11] MEDS ORDERED: Lidocaine Hydrochloride 10 ML INJ ONE (09:11)
[2018-08-11] MEDS ORDERED: Lactated Ringer's 500 ML IV SCH (10:00)
[2018-08-11 11:11] VITALS: O2SAT 100
[2018-08-11 11:24] VITALS: BP 130/70; PULSE 78; RESP 20
== END 2018-08-11 11:15 | disposition home or self-care (01) ==
LOC: C.ENDO 07:30
PROVIDERS: ATTEND Internal Medicine Gastroenterology
DX: K29.50 Unspecified chronic gastritis without bleeding (principal); D50.9 Iron deficiency anemia, unspecified; E66.01 Morbid (severe) obesity due to excess calories; E87.1 Hypo-osmolality and hyponatremia; B96.81 Helicobacter pylori [H. pylori] as the cause of diseases classified elsewhere; K64.8 Other hemorrhoids
CPT/HCPCS: 43239; 45378; 82948; 88305; 88313; 88342; J2250; J2704; J7120